=== PATIENT | male | born 1995 | race Caucasian/White ===

== ENCOUNTER 2025-02-27 12:04 | Emergency (ER) | payer MEDICAID, SELFPAY ==
--- NOTE | 2025-02-27 12:49 | EDNOTE_ITS ---
ED General RME/HPI General Chief complaint: Abdominal Pain Stated complaint: ABD PAIN X 5 DAYS Time Seen by Provider: 02/27/25 12:37 Arrival date/time: 02/27/25 12:04 CC: Nausea vomiting abdominal pain HPI ongoing for the past 4 to 5 days intermittent nature currently both the nausea and vomiting as well as the pain are absent. The patient stated he had severe nausea this morning resulting in vomiting x 2. No prior history of similar events denies any painful bladder or bloody urination or defecation. Patient is awake alert oriented denies any chest pain shortness of breath or difficulty breathing no other complaints at this time no OTC medicines taken has not eaten this morning. Related Data Previous Rx's ?Medication ?Instructions ?Recorded dicyclomine 20 mg tablet 20 mg PO BID #14 tabs ondansetron 4 mg disintegrating 4 mg PO Q8H #10 tabs 1 04/30/24 tablet Allergies Allergy/AdvReac Type Severity Reaction Status Date / Time No Known Allergies Allergy Verified 02/27/25 12:07 Review of Systems Review of Systems Narrative Review of Systems: GEN: No fever, no chills, no weight loss EYES: No discharge, no visual changes, no pain HEENT: No ear pain, no congestion, no sore throat PULM: No shortness of breath, no cough, no congestion CV: No chest pain, no dyspnea on exertion, no palpitations GI: No nausea, no vomiting, no diarrhea, no pain, no constipation : No frequency, no urgency, no dysuria MUSC/SKEL: No joint pain, no back pain SKIN: No rash PSYCH: No hallucinations, no depression HEME/LYMPH: No easy bleeding or bruising tendencies NEURO: No weakness, no headache Past Medical History Social History SMOKING STATUS: Current every day smoker ED Exam Narrative Physical exam: [General: Not in any acute distress Head normocephalic HEENT: Within acceptable limits Neck is supple nontender Chest equal chest rise nontender to palpation Respiratory: Clear to auscultation no wheezes crackles or rubs CV: Rate rhythm is regular no murmurs rubs or clicks Abdomen is soft nontender in all 4 Quadrants with deep palpation. No reflexive guarding no rebound tenderness. No masses positive bowel sounds all 4 quadrants Back: No CVA tenderness no spinous process tenderness from cervical spine thoracic and lumbar spine Skin: Intact no petechiae rash induration ulceration or crepitus Extremities: Moving all extremity against resistance cap refill less than 2 seconds neurosensory intact Neuro: Awake alert oriented x3 Glascow coma 15 no focal deficits] Course Course Course Narrative: Patient currently is absent of all complaints. Patient has unremarkable laboratory results do not feel that the patient needs imaging at this time we will discharge the patient home with abdominal pain Quality Measures none Orders Category Date Time Status CBC Stat Lab 02/27/25 13:05 Completed Comprehensive Metabolic Panel Stat Lab 02/27/25 13:05 Completed Drug Screen,Urine Stat Lab 02/27/25 12:55 Completed Lipase Stat Lab 02/27/25 13:05 Completed Magnesium Stat Lab 02/27/25 13:05 Completed Partial Thromboplastin Time Stat Lab 02/27/25 13:05 Completed Prothrombin Time with INR Stat Lab 02/27/25 13:05 Completed Urinalysis, C/S if Indicated Stat Lab 02/27/25 12:55 Completed Vital Signs Vital signs: Vital Signs Temperature 98.1 F 02/27/25 12:50 Pulse Rate 92 02/27/25 12:50 Respiratory Rate 16 02/27/25 12:50 Blood Pressure 132/83 H 02/27/25 12:50 Pulse Oximetry (%) 98 02/27/25 12:50 Oxygen Delivery Method Room Air 02/27/25 12:50 Discharge Plan Plan Patient Disposition: HOME (Self Care) Patient condition on transfer: Stable Prescriptions/Referrals Prescriptions/Med Rec: New ondansetron 4 mg tablet,disintegrating 4 mg PO Q8H Qty: 10 0RF dicyclomine 20 mg tablet 20 mg PO BID Qty: 14 0RF Referrals: Mayo Alfonso MD [Physician, Family Practice] - In 1 week No Primary/Family,Physician [Primary Care Provider] - In 1 week Problem List Clinical Impression: Abdominal pain Patient/Caregiver Discharge Instructions Other Activity Instructions:: Take the medications as prescribed avoid greasy spicy fatty foods if there is a worsening of symptoms follow-up with the primary care doctor listed above or return to the emergency room for reevaluation. Education Materials: Abdominal Pain Print Language: Congolese Stand Alone Forms: Allie Award Info., Patient Portal Info Letter, Work/School Release PA/[facility] [employer] Supervising Physician PA/[employer] [employer] Supervising Physician: Phoenix Briseno ENP MDM Clinical Information Provided by: patient Medical Records reviewed [facility] Meds/Rx considered, not ordered None Labs/Rad/Tests considered, not ordered None Chronic Illness/Social Conditions which may negatively complicate care or outcome(s)-explain: None or not applicable EKG EKG not done Labs Labs: interpreted by hi Lab(s) Interpretation(s): CBC shows no acute leukocytosis anemia thrombocytopenia CMP shows no significant electrolyte imbalances renal impairment transaminitis or T. bili elevation. Urine is negative for urinary tract infection UDS is negative other than THC which is positive. Imaging Imaging interpretation: none Medication Administration(s) none Diagnosis Differential Diagnosis ED Complaint MDM: Cholelithiasis cholecystitis gastritis
[2025-02-27 12:50] VITALS: BP 132/83; PULSE 92; RESP 16; TEMP 36.7; O2SAT 98
[2025-02-27 13:01] LABS: Collection Type, Urine Clean Catch; Squamous Epithelial Cell,Urine 0 /hpf (0-5)
[2025-02-27 13:10] LABS: Bilirubin,Urine Negative (Negative); Blood,Urine Negative (Negative); Clarity,Urine Clear (Clear/Hazy); Color,Urine Yellow (Lt Yel-Yel); Culture Indicated,Urine Not Indicated; Glucose, Urine Negative (Negative); Ketones,Urine Negative (Negative); Leukocyte Esterase,Urine Negative (Negative); Nitrite,Urine Negative (Negative); PH,Urine 6.0 (5.0-7.0); Protein,Urine Negative (Neg - Trace); RBC,Urine 1 /hpf (0-3); Specific Gravity,Urine 1.026 (1.001-1.035); Urobilinogen,Urine Negative mg/dL (0.0-1.0); WBC,Urine 1 /hpf (0-5)
[2025-02-27 13:25] LABS: Basophils # (Auto) 0.0 Thou/mm3 (0.0-0.2); Basophils % (Auto) 1 % (0-2.5); Eosinophils # (Auto) 0.1 Thou/mm3 (0.0-0.5); Eosinophils % (Auto) 1 % (0-10); Hematocrit 43.6 % (41.0-53.0); Hemoglobin 15.1 g/dL (13.5-16.0); Immature Granulocytes Auto 0.00 Thou/mm3 (0.00-0.00); Lymphocytes # (Auto) 1.1 Thou/mm3 (1.0-4.8); Lymphocytes % (Auto) 24 % (10-50); Mean Corpuscular HGB Conc 34.6 g/dl (31.0-37.0); Mean Corpuscular Hemoglobin 29.8 pg (25.0-35.0); Mean Corpuscular Volume 86 fL (80-100); Monocytes # (Auto) 0.6 Thou/mm3 (0.0-0.8); Monocytes % (Auto) 13 % (0-12); Neutrophils # (Auto) 2.9 Thou/mm3 (1.8-7.7); Neutrophils % (Auto) 62 % (37-80); Nucleated Red Blood Cell # 0.00 Thou/mm3 (0.00-0.00); Nucleated Red Blood Cell % 0 /100 WBC (0); Platelet Count 291 Thou/mm3 (140-440); RDW Standard Deviation 39.1 fL (35.1-43.9); Red Blood Count 5.07 Miln/mm3 (4.50-5.90); White Blood Count 4.7 Thou/mm3 (3.8-10.6)
[2025-02-27 13:36] LABS: Amphetamine/Methamp Scrn,U Negative (Negative); Barbiturate Screen,Urine Negative (Negative); Benzodiazepines Screen,Urine Negative (Negative); Benzoylecgonine Screen, Ur Negative (Negative); Fentanyl Screen,Urine Negative (Negative); Opiate Screen,Urine Negative (Negative); THC Screen,Urine Positive (Negative)
[2025-02-27 13:44] LABS: Alanine Aminotransferase 33 U/L (10-49); Albumin, Serum 5.2 gm/dL (3.5-5.0); Albumin/Globulin Ratio 1.9 (1.2-2.2); Alkaline Phosphatase 113 U/L (46-116); Anion Gap 10 (7-16); Aspartate Amino Transferase 20 U/L (0-34); BUN/Creatinine Ratio 10 Ratio (12-20); Bilirubin,Total 0.4 mg/dL (0.3-1.2); Blood Urea Nitrogen 8 mg/dL (9-23); Calcium 9.4 mg/dL (8.3-10.6); Calcium (Corrected) 9.4 mg/dL (8.5-10.1); Carbon Dioxide 27.3 mMol/L (20.0-31.0); Chloride 105 mMol/L (98-107); Creatinine (Component) 0.8 mg/dL (0.6-1.3); Globulin 2.8 gm/dL (2.3-3.5); Glucose 104 mg/dL (74-106); INR 1.0 (0.9-1.3); Lipase 31 U/L (12-53); Magnesium 1.9 mg/dL (1.6-2.6); Osmolality,Calculated 281 (275-295); Partial Thromboplastin Time 29.2 Seconds (22.0-36.0); Potassium 4.2 mMol/L (3.4-5.1); Prothrombin Time 10.9 Seconds (9.0-12.2); Sodium 142 mMol/L (136-145); Total Protein 8.0 gm/dL (5.7-8.2); eGFR > 60 See Note
== END 2025-02-27 14:21 | disposition home or self-care (01) ==
PROVIDERS: Registered Nurse General Practice; Emergency Provider Emergency Medicine
DX: R10.9 Unspecified abdominal pain (principal)
CPT/HCPCS: 36415; 80053; 80307; 81001; 83690; 83735; 85025; 85610; 85730; 99282